=== PATIENT | male | born 1940 | race Caucasian/White ===

== ENCOUNTER 2018-02-11 15:48 | Outpatient (CLI) | payer MEDICARE, OTHER ==
--- NOTE | 2018-02-11 17:54 | RAD ---
ONE VIEW ABDOMEN: HISTORY: Generalized abdominal pain. COMPARISON: None. FINDINGS: Nonspecific bowel gas pattern. No specific density in the abdomen or pelvis. 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 There is evidence of previous abdominal hernia repair. IMPRESSION: Nonspecific bowel gas pattern. POS: [facility]IV
== END 2018-02-11 15:49 | disposition home or self-care (01) ==
LOC: RAD 15:48
PROVIDERS: ATTEND Family Medicine
DX: R10.84 Generalized abdominal pain (principal)
CPT/HCPCS: 74018